=== PATIENT | male | born 1960 | race Caucasian/White ===

== ENCOUNTER 2016-09-25 01:51 | Inpatient (IN) | payer OTHER ==
[~2016-09-25] VITALS: Ht 170.2 cm; Wt 72.6 kg
[~2016-09-25 01:51] MED LIST: ATENOLOL100 M1 PO
--- NOTE | 2016-09-25 09:03 | Admission Core Measures ---
Admission Meds I reviewed the following Meds: Current Medications Sig/Tati Start time Last Medication Dose Stop Time Status Admin Acetaminophen 975 MG ONCE 09/25 0000 NR (Tylenol) 09/25 2358 Cefazolin Sodium 2,000 MG ONCE 09/25 NR (Kefzol-Ancef Inj) 09/25 2358 Oxycodone HCl 10 MG ONCE 09/25 0000 NR (Roxicodone) 09/25 2358 Acute Coronary Syndrome Inclusion Criteria ACS Diagnosis No Inpatient Core Measures LDL Reminder: If No, please order W/I first 24hr of stay Congestive Heart Failure Inclusion Criteria CHF Diagnosis No Cerebrovascular accident Inclusion Criteria CVA/TIA Diagnosis No Inpatient Core Measures Bedside Swallow Eval Reminder: If BSE failed, place ST order Antithrombotic Reminder: Order Antithrombotic Medication by end of day 2 Antithrombotic Reminder: Document Reason Antithrombotic Not ordered by end of day 2 AFIB/Flutter Reminder: If Present, add to problem list AFIB/Flutter Reminder: Order Anticoag Medication for pts with AFIB/Flutter Atherosclerosis Reminder: If Present, add to problem list LDL Reminder: If No, please order W/I first 24hr of stay PT Order Reminder: If No, please order Venous thromboembolism Inpatient Core Measures VTE Risk Factors: Age > 40, Surgery No [facility] VTE prophylaxis d/t No contraindications No VTE Pharm Prophylaxis d/t No contraindications Inclusion Criteria - Per Current guidelines, there needs to be overlap - treatment for the first 5 days of Warfarin therapy. - Parenteral Anticoagulation (IV or SC) needs to be - given along with Warfarin therapy. VTE Diagnosis No VTE Type NONE VTE Confirmed by (Test) NONE Problem List As ranked by this Provider includes Assessment & Plan 1. S/P total hip arthroplasty HOME MEDS Home Med List Atenolol 100 MG TABLET 1 TAB PO DAILY HEART (Reported)
[2016-09-25] MEDS ORDERED: MIRALAX17 G1 PO (09:15)
[2016-09-25] MEDS ORDERED: MS CONTIN15 M2 PO (09:15)
[2016-09-25] MEDS ORDERED: DILAUDID4 M1 PO (09:15)
[2016-09-25] MEDS ORDERED: COLACE100 M1 PO (09:15)
[2016-09-25] MEDS ORDERED: ASPIRIN325 M2 PO (09:15)
--- NOTE | 2016-09-25 09:17 | Patient Discharge Instructions ---
Discharge Instructions General Discharge Information You were seen/treated for: Right hip degenerative joint disease You had these procedures: Right hip total arthroplasty Watch for these problems: Significantly increased pain or inability to bear weight Temperatures over 101 Increased drainage or redness from around the incision No bath, but you may shower: Yes Other wound care: Daily dry dressing change Special Instructions: See printed information sheet Diet Continue normal diet: Yes Activity Activity Self Limited: Yes Other activity limits: Ambulate per physical therapy recommendations To not operate a vehicle or heavy machinery until seen by surgeon Acute Coronary Syndrome Inclusion Criteria At DC or during hospital stay patient has or had the following: ACS DIAGNOSIS No Discharge Core Measures Meds if any: Prescribed or Continued at Discharge Meds if any: NOT Prescribed or Continued at Discharge Congestive Heart Failure Inclusion Criteria At DC or during hospital stay patient has or had the following: CHF DIAGNOSIS No Discharge Core Measures Meds if any: Prescribed or Continued at Discharge Meds if any: NOT Prescribed or Continued at Discharge Cerebrovascular accident Inclusion Criteria At DC or during hospital stay patient has or had the following: CVA/TIA Diagnosis No Discharge Core Measures Meds if any: Prescribed or Continued at Discharge Meds if any: NOT Prescribed or Continued at Discharge Venous thromboembolism Inclusion Criteria VTE Diagnosis No VTE Type NONE VTE Confirmed by (Test) NONE Discharge Core Measures - Per Current guidelines, there needs to be overlap - treatment for the first 5 days of Warfarin therapy. - If discharged on Warfarin prior to 5 days of - overlap therapy, the patient will need to be - assessed for post discharge needs including - *Post discharge parental anticoagulation - *Warfarin and/or parental anticoagulation education - *Follow up date to check INR post discharge At least 5 days overlap therapy as Inpatient No Meds if any: Prescribed or Continued at Discharge Note: Overlap Therapy is Warfarin and Anticoagulant Meds if any: NOT Prescribed or Continued at Discharge
--- NOTE | 2016-09-25 09:19 | Surg Short-stay <48hrs Dis Sum ---
Visit Information Visit Dates Admission Date: 09/25/16 Discharge Date: 09/25/16 Surgical Short Stay DC Summary Admission Diagnosis: Right hip degenerative joint disease Final Diagnosis: Same Procedure(s): Right hip total arthroplasty Summary/Significant Findings: The patient was admitted on 09/25/2016. He was brought to the operating theater where he underwent a right total hip arthroplasty. Postoperative patient progressed as expected, his pain was under adequate control, and the endplate as well as physical therapy. The patient tolerated diet and voided adequately and was discharged with an uneventful hospital course. Condition at Discharge: Stable Discharge Disposition: home health services Discharge instructions provided to patient/family: Yes Post discharge follow-up plan: Call to be seen in 6 weeks or earlier if need be.
--- NOTE | 2016-09-25 11:27 | NUR ---
PT ARRIVED TO FLOOR VIA STRETCHER FROM PACU, AO, RA, C/O SLIGHT NUMBNESS IN RLE, PT STOOD AT BEDSIDE WITH PT, BUT TRANSFERRED FROM [facility] TO BED, C/O 3/10 PAIN, VSS, TOLERATING PO INTAKE, IV INTACT, FLUIDS RUNNING- REFUSED MEDICATIONS, BELONGINGS BROUGHT TO PATIENT FROM PACU. WILL CONTINUE TO MONITOR.
--- NOTE | 2016-09-25 11:33 | RADIOLOGY REPORT ---
EXAMINATION: XR HIP, RIGHT CLINICAL INFORMATION: Right total hip replacement. Patient in PACU. COMPARISON: None TECHNIQUE: Two views of the right hip. FINDINGS: A right total hip arthroplasty is noted with the components in the usual position. No periprosthetic fracture or suspicious area of lucency noted. Small amount of air noted within the soft tissues compatible with this being a postoperative radiograph IMPRESSION: Right total hip arthroplasty without complication by x-ray.
[2016-09-25 11:50] VITALS: BP 100/72
--- NOTE | 2016-09-25 12:49 | PN- Orthopedic ---
Subjective Subjective: Post op check, POD#0, SP R MARA. Patient relates a mild discomfort right hip and anterior aspect. He was unable to ambulate with physical therapy because of residual numbness from anesthesia. He has a good appetite, he has no chest pain shortness of breath no fever no flulike illness. He has not voided yet. He is hopeful to be discharged home today. Objective Vital Signs and I&Os Vital Signs Date Time Temp Pulse Resp B/P Pulse O2 O2 Flow FiO2 Ox Delivery Rate 09/25 1222 Room Air Room Air 09/25 1150 97.5 68 20 100/72 93 Room Air Physical Exam: Well-developed well-nourished no apparent distress. HEENT: Atraumatic, extraocular motion intact Neck: Supple, no lymphadenopathy Respiratory: No respiratory distress Extremities: No edema RIGHT lower extremity hip dressing in place, Dressing clean dry and intact Mild thigh edema No signs of infection. No shortening or rotation Hip range of motion is limited and without unexpected pain Neurovascularly intact distally Bilateral calves are supple, nontender. Neuro: Alert and oriented x3 Psych: Mood affect normal, normal memory normal judgment. Skin: Warm and dry, no rash on exposed skin Assessment/Plan Assessment/Plan Postop day 0 status post right total hip arthroplasty anterior approach. -Aspirin for DVT prophylaxis 325 mg twice a day -Continue IV antibiotics -Regular diet -Pain medication as directed -Patient has yet to clear physical therapy or void, hopefully we will discharge him home later today if he voids and clears therapy. Core Measures/Miscellaneous Venous Thromboembolism VTE Risk Factors: Age > 40, Surgery VTE Contraindications: No Contraindications VTE Diagnosis: No VTE Type: NONE VTE Confirmed by (Test): NONE Beta Margo Is Beta Margo a Home Med? Yes If Yes, Was This Ordered Today? Yes Antibiotics Is Patient on Antibiotics? Yes If Yes: prophylaxis
--- NOTE | 2016-09-25 14:00 | NUR ---
PT C/O OF PAIN IN LOWER ABD, BLADDER FELT DISTENDED TO TOUCH, INSTRUCTED PATIENT TO VOID- PT VOIDED 250ML CLEAR YELLOW URINE, BLADDER SCANNED PATIENT WHICH READ 700ML, PA NOTIFIED.
[2016-09-25 14:07] VITALS: BP 112/70
--- NOTE | 2016-09-25 14:30 | NUR ---
PT VOIDED 700ML, PA AWARE, PT TO BE DISCHARGED.
--- NOTE | 2016-09-25 15:10 | Operative Report ---
Operative/Inv Procedure Report Surgery Date: 09/25/16 Name of Procedure: Right total hip replacement Pre-Operative Diagnosis: Primary right hip DJD Post-Operative Diagnosis: Same Estimated Blood Loss: 350 Surgeon/Knocker Off: ANGELO JOHN,BILLY Martinez Anesthesia: block Operative/Procedure Note Note: Description of Procedure: The patient was taken to the operating room and positively identified. After induction of spinal anesthesia and administration of appropriate pre-operative antibiotics, the patient was positioned supine on the operating room table and all bony prominences were well padded. After performing a surgical timeout, the right lower extremity was prepped and draped in the usual sterile fashion. A direct anterior approach was made to the right hip. The incision was carried sharply through superficial soft tissues to the level of the fascia. Meticulous hemostasis was maintained with Bovie electocautery. The fascia over the tensor fascia onofre muscle was opened sharply and the interval between the TFL and the sartorius was entered bluntly taking care to stay lateral to the lateral femoral cutaneous nerve. Retractors were placed around the femoral neck and the pericapsular fat was identified. The ascending branches of the lateral femoral circumflex vessels were identified and carefully coagulated. The pericapsular fat and anterior capsule were then resected. A napkin ring osteotomy was performed and the femoral head was removed without difficulty. Attention was then turned to the acetabulum. After appropriate placement of retractors, the acetabulum was exposed. Soft tissue was cleaned from the acetabular margin and notch. Overhanging osteophytes were removed and the teardrop was exposed. The acetabulum was then sequentially reamed to accept a 56 mm Juan Tritanium hemispherical solid back shell. This was impacted into place in the appropriate position and fitted with a 32 mm Trident X3 zero degree polyethylene insert. Attention was then turned to the femur. After performing the appropriate ligament releases, the proximal femur was exposed. It was then sequentially broached to accept a size 5 [place] Anato stem. This was trialed for leg length and stability. The trial component was removed and the final component was impacted into place. The trunnion was carefully cleaned and fit with a 32 mm, + 0 Biolox delta ceramic femoral head. The hip was reduced and put through a full range of motion and found to be stable. The articular space was then irrigated with sterile saline. The periarticular soft tissues were infilitrated with Marcaine. The fascial layer was closed with interrupted #1 vicryl suture and the skin was re-approximated with interrupted 2 -0 vicryl. The skin was closed with a running 3-0 V-Lock suture. Steri-strips and a sterile dressing were applied. The patient was awakened and taken to the recovery room in satisfactory condition.
== END 2016-09-25 17:06 | disposition home health service (06) | DRG 470 ==
LOC: ENRESERVDT → ENRESERVTM → SDA 01:51 → ENPENDDIS 01:51 → SDA 07:00 → 2NA 11:25
PROVIDERS: ADMIT Orthopaedic Surgery
PROC: 0SR904A Replacement of Right Hip Joint with Ceramic on Polyethylene Synthetic Substitute, Uncemented, Open Approach (ICD-10-PCS; principal; 2016-09-25)
DX: M16.11 Unilateral primary osteoarthritis, right hip (principal); B18.2 Chronic viral hepatitis C
CPT/HCPCS: 2NASP; 73502-RT; 88304; 97116-GO; 97161-GP; 97530-GO; J0131; J0690; J1100; J2405; J2550; J7042

== ENCOUNTER 2017-12-16 12:29 | Emergency (ER) | payer OTHER ==
[~2017-12-16] VITALS: Ht 170.2 cm; Wt 74.8 kg
[~2017-12-16 12:29] MED LIST changes: +ASPIRIN325 M2 PO; +COLACE100 M1 PO; +DILAUDID4 M1 PO; +MIRALAX17 G1 PO; +MS CONTIN15 M2 PO
[2017-12-16 13:38] LABS: ABSOLUTE BASOPHIL COUNT 0 /CUMM (0.0-0.2); ABSOLUTE EOSINOPHIL COUNT 0 /CUMM (0.0-0.7); ABSOLUTE LYMPH COUNT 0.6 /CUMM (1.2-3.4); MEAN CORPUSCULAR HGB CONC 35.3 G/DL (33.0-37.0)
[2017-12-16 13:40] LABS: ABSOLUTE GRANULOCYTE CT 3.4 /CUMM (1.4-6.5); ABSOLUTE MONOCYTE COUNT 0.7 /CUMM (0.10-0.60); BASOPHIL % 0.1 % (0.0-2.0); EOSINOPHIL % 0 % (0-5); GRANULOCYTE % 71.8 % (42.2-75.2); HEMATOCRIT 37.9 % (42-52); MEAN CORPUSCULAR HGB 33.9 PG (27.0-31.0); MEAN CORPUSCULAR VOLUME 95.9 FL (80.0-94.0); MEAN PLATELET VOLUME 7.9 FL (7.4-10.4); RBC DISTRIBUTION WIDTH 12.4 % (11.5-14.5); RED BLOOD CELL CT 3.95 /CUMM (4.70-6.10); WHITE BLOOD CELL COUNT 4.7 /CUMM (4.8-10.8)
[2017-12-16 13:51] LABS: PLATELET COUNT 56 /CUMM (130-400)
--- NOTE | 2017-12-16 14:24 | ED GENERAL ADULT ---
History of Present Illness General Chief Complaint: General Adult Stated Complaint: MILD FEVER X6DAYS "TODAY IT SHOT UP TO 104" COUGH Source: patient, family () Exam Limitations: no limitations Vital Signs & Intake/Output Vital Signs & Intake/Output Vital Signs Date Time Temp Pulse Resp B/P B/P Pulse O2 O2 Flow FiO2 Mean Ox Delivery Rate 12/16 1749 100.0 12/16 1729 100.0 93 17 99/58 95 Room Air 12/16 1441 99.1 94 20 102/56 96 Room Air 12/16 1234 99.6 107 22 99/64 96 Room Air Allergies Coded Allergies: fish derived (Intermediate, HIVES 05/28/16) Triage Note: REPORTS LOW GRADE FEVERS X 1 WEEK AND TODAY HE CHECKED IT ORALLY AT 104. HE TOOK ADVIL WITH POSITIVE RESULT. 99.6 AT TRIAGE. ALSO REPORTS A DRY NON PRODUCTIVE COUGH. Triage Nurses Notes Reviewed? yes Onset: Last week Duration: changing over time Timing: no prior history Associated Symptoms: cough HPI: 57-year-old male with history of hepatitis C presents to the emergency department reporting that last week on Sunday, December 10 in the evening he began feeling unwell and had a low-grade fever about 99F. Throughout the week he had felt this on and off in the last 3 days had felt normal. However as of last night into this morning patient began feeling feverish with chills and had taken a temperature of 10 4F. He had taken some Advil prior to coming to this emergency department. He denies any pain anywhere, denies any changes in bowel habits, reports a dry cough that occurs from time to time over the last week, and does report urinating slightly less than normal. 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 For hepatitis C he sees Dr. Thomas GI specialist out of [place], has been reportedly under control. (Mary Cardona) Reconcile Medications Amoxicillin 875 MG TABLET 1 TAB PO BID infection Aspirin (Aspirin*) 325 MG TABLET 1 TAB PO BID BLOOD THINNER Atenolol 100 MG TABLET 1 TAB PO DAILY HEART (Reported) Docusate Sodium (Colace) 100 MG CAPSULE 1 CAP PO BID CONSTIPATION Hydromorphone HCl (Dilaudid) 4 MG TABLET 1-2 TAB PO Q4-6P PRN PAIN Ms Contin 15 MG TABLET.ER 1 TAB PO BID PAIN Polyethylene Glycol 3350 (Miralax) 17 GRAM POWD.PACK 1 PAC PO DAILY CONSTIPATION dissolve in water (Marquis JOHN,Vick) Past History Travel History Traveled to [place] past 21 day No Medical History Any Pertinent Medical History? 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 No (Mary Cardona) Review of Systems Review of Systems Constitutional: Reports: see HPI. EENTM: Reports: no symptoms. Respiratory: Reports: no symptoms. Cardiovascular: Reports: no symptoms. GI: Reports: no symptoms. Genitourinary: Reports: see HPI. Musculoskeletal: Reports: no symptoms. Skin: Reports: no symptoms. Neurological/Psychological: Reports: no symptoms. Hematologic/Endocrine: Reports: no symptoms. Immunologic/Allergic: Reports: no symptoms. All Other Systems: Reviewed and Negative (Mary Cardona) Physical Exam Physical Exam General Appearance: well developed/nourished, no apparent distress, alert, awake , comfortable Head: atraumatic, normal appearance Eyes: Bilateral: normal appearance, PERRL, EOMI. Ears, Nose, Throat: normal pharynx, normal ENT inspection, hearing grossly normal Neck: normal inspection, supple, full range of motion Respiratory: normal breath sounds, chest non-tender, no respiratory distress Cardiovascular: regular rate/rhythm Gastrointestinal: normal bowel sounds, soft, non-tender Back: normal inspection, normal range of motion Extremities: normal inspection, normal range of motion Neurologic/Psych: no motor/sensory deficits, awake, alert, oriented x 3, normal gait, normal mood/affect Skin: intact, normal color, warm/dry Core Measures ACS in differential dx? No CVA/TIA Diagnosis: No Sepsis Present: No Sepsis Focused Exam Completed? No (Lili POWER,Mary) Progress Differential Diagnoses I considered the following diagnoses in my evaluation of the patient: [pneumonia , viral infection, bacterial infection, sinusitis] Plan of Care: Orders Procedure Date/time Status MONOSPOT 12/16 1600 Complete RAPID VIRAL INFLUENZA A 12/16 1542 Complete THROAT CULTURE W/QUICK STREP 12/16 1542 Active BLOOD CULTURE 12/16 1542 Active URINALYSIS 12/16 1530 Complete COMPREHENSIVE METABOLIC PANEL 12/16 1235 Complete CBC WITHOUT DIFFERENTIAL 12/16 1235 Complete Laboratory Tests 12/16/17 1611: Urine Color YEL, Urine Clarity CLEAR, Urine pH 6.5, Ur Specific [place] <= 1.005 , Urine Protein NEG, Urine Ketones NEG, Urine Nitrite NEG, Urine Bilirubin NEG, Urine Urobilinogen 1.0, Ur Leukocyte Esterase NEG, Ur Microscopic EXAM NOT REQUIRED, Urine Hemoglobin NEG, Urine Glucose NEG 12/16/17 1605: Infectious [place] Titer NEGATIVE 12/16/17 1330: CBC w Diff NO MAN DIFF REQ, RBC 3.95 L, MCV 95.9 H, MCH 33.9 H, MCHC 35.3, RDW 12.4, MPV 7.9, Gran % 71.8, Lymphocytes % 13.3 L, Monocytes % 14.8 H, Eosinophils % 0, Basophils % 0.1, Absolute Granulocytes 3.4, Absolute Lymphocytes 0.6 L, Absolute Monocytes 0.7 H, Absolute Eosinophils 0, Absolute Basophils 0 12/16/17 1326: Anion Gap 8, Estimated GFR > 60, BUN/Creatinine Ratio 18.0, Glucose 118 H, Calcium 8.2 L, Total Bilirubin 3.3 H, AST 31, ALT 30, Alkaline Phosphatase 45, Total Protein 6.2 L, Albumin 3.2 L, Globulin 3.0, Albumin/Globulin Ratio 1.1 Microbiology 12/16 1610 NASOPHARYN: Influenza Virus A & B Rapid Smear - COMP 12/16 1605 BLOOD: Blood Culture - RECD 12/16 1555 BLOOD: Blood Culture - RECD Diagnostic Imaging: Viewed by Me: Radiology Read. Discussed w/RAD: Radiology Read. Radiology Impression: PATIENT: IZABELLA QUIROS PRESENT AGE: 57 PATIENT ACCOUNT NO: [id number] : 62 LOCATION: [facility] ORDERING PHYSICIAN: Mary POWER SERVICE DATE: 12/16/17 EXAM TYPE: RAD - XRY- CHEST XRAY, TWO VIEWS EXAMINATION: XR CHEST CLINICAL INFORMATION: Fever rule out pneumonia COMPARISON: None TECHNIQUE: 2 views of the chest were obtained. FINDINGS: No significant abnormality is noted involving the heart, lungs, mediastinum, bony thorax or soft tissues. IMPRESSION: No radiographic evidence of acute infiltrates. DICTATED BY: Kayleigh Menjivar MD DATE/TIME DICTATED:1519 DIRECTOR OF STUDENT LIFE:JANETT DATE/TIME TRANSCRIBED:12/16/171519 CONFIDENTIAL, DO NOT COPY WITHOUT APPROPRIATE AUTHORIZATION. <Electronically signed in Other Vendor System> SIGNED BY: Kayleigh Menjivar MD 12/16/171523 Initial ED EKG: none (Mary Cardona) Departure Departure Disposition: HOME OR SELF CARE Condition: Stable Clinical Impression Primary Impression: Fever of unknown origin Referrals: Janna JOHN,Sheikh Kenton (PCP/Family) Additional Instructions: Take antibiotics as prescribed. Take tylenol for fevers. Follow-up with your primary care in GI specialist this week. Return to the emergency department with worsening symptoms or other concerns. Departure Forms: Customer Survey General Discharge Information Prescriptions: Current Visit Scripts Amoxicillin 1 TAB PO BID #20 TAB Comments 12/16/17 4:00 PM chest x-ray negative, white blood cell count not elevated. Ordering blood cultures, Monospot, strep culture, and flu swab. 57-year-old male presents to the emergency department with 6 days of fever. Fever has been intermittent in the last 3 days patient had felt fine until this morning. In the emergency department, the chest x-ray was negative, blood work was normal and Monospot, rapid flu, and rapid strep are negative. Patient was discharged in stable condition on antibiotic and advised to take Tylenol for fevers. Awaiting blood cultures and throat culture. Follow-up with primary care and GI specialist this week. Return to the emergency department with worsening symptoms or other concerns for well-being. (Mary Cardona) PA/REFRIGERATOR CAR ICER Co-Sign Statement Statement: ED Attending supervision documentation- I saw and evaluated the patient. I have also reviewed all the pertinent lab results and diagnostic results. I agree with the findings and the plan of care as documented in the PA's/REFRIGERATOR CAR ICER's documentation. x I have reviewed the ED Record and agree with the PA's/REFRIGERATOR CAR ICER's documentation. [] Additions or exceptions (if any) to the PAs/REFRIGERATOR CAR ICER's note and plan are summarized below: [] (Marquis JOHN,Vick) Critical Care Note Critical Care Note Critical Care Time: non-applicable (Mary Cardona)
--- NOTE | 2017-12-16 15:24 | RADIOLOGY REPORT ---
EXAMINATION: XR CHEST CLINICAL INFORMATION: Fever rule out pneumonia COMPARISON: None TECHNIQUE: 2 views of the chest were obtained. FINDINGS: No significant abnormality is noted involving the heart, lungs, mediastinum, bony thorax or soft tissues. IMPRESSION: No radiographic evidence of acute infiltrates.
[2017-12-16 17:29] VITALS: BP 99/58
[2017-12-16] MEDS ORDERED: AMOXICILLIN875 M1 PO (17:54)
== END 2017-12-16 18:01 ==
LOC: ERH 12:29
PROVIDERS: Emergency Medicine
DX: R50.9 Fever, unspecified (principal); R05 Cough
CPT/HCPCS: 71046; 81003; 87040; 87804; 87804-59